=== PATIENT | female | born 1960 | race African-American/Black ===

== ENCOUNTER → 2018-05-21 | Emergency (ER) | payer OTHER ==
[~2018-05-21] MED LIST: CARNITINE250 MG; KETO10TA2 PO; WELLBUTRIN75 MG
== END | disposition left against medical advice (07) ==
LOC: ER 20:56
DX: Z53.20 Procedure and treatment not carried out because of patient's decision for unspecified reasons (principal)

== ENCOUNTER 2018-10-24 17:03 | Emergency (ER) | payer OTHER ==
[~2018-10-24] VITALS: Ht 157.5 cm; Wt 65.8 kg
== END 2018-10-24 21:25 | disposition home or self-care (01) ==
LOC: ER 17:03
DX: K29.70 Gastritis, unspecified, without bleeding (principal)

== ENCOUNTER 2019-05-11 17:54 | Emergency (ER) | payer OTHER ==
[~2019-05-11] VITALS: Ht 152.4 cm; Wt 79.4 kg
[2019-05-11] MEDS ORDERED: SYNTHROID75 MCG (18:11)
[2019-05-12] MEDS ORDERED: LEVSIN/SL0.125 MG SL (02:44)
[2019-05-12] MEDS ORDERED: PEPCID40 MG PO (02:44)
[2019-05-12] MEDS ORDERED: ZOFRAN4 MG PO (02:44)
== END 2019-05-12 02:51 | disposition home or self-care (01) ==
LOC: ER 17:54
DX: Q44.6 Cystic disease of liver (principal); R10.11 Right upper quadrant pain

== ENCOUNTER 2020-03-14 22:54 | Emergency (ER) | payer OTHER ==
[~2020-03-14] VITALS: Ht 152.4 cm; Wt 81.6 kg
[~2020-03-14 22:54] MED LIST changes: +LEVSIN/SL0.125 MG SL; +PEPCID40 MG PO; +SYNTHROID75 MCG; +ZOFRAN4 MG PO
== END 2020-03-15 06:02 | disposition home or self-care (01) ==
LOC: ER 22:54 → CPU-OBS 23:40 → ER 03-15 06:02
DX: I16.0 Hypertensive urgency (principal); I10 Essential (primary) hypertension; R07.89 Other chest pain
CPT/HCPCS: G0378; G0379; 93005

== ENCOUNTER 2022-05-20 15:43 | Emergency (ER) | payer OTHER ==
[~2022-05-20] VITALS: Ht 152.4 cm; Wt 70.3 kg
[2022-05-20] MEDS ORDERED: VALSARTAN320 MG (16:24)
== END 2022-05-20 19:29 | disposition home or self-care (01) ==
LOC: ER 15:43
DX: R19.7 Diarrhea, unspecified (principal)